=== PATIENT | male | born 1965 | race Caucasian/White ===

== ENCOUNTER → 2017-06-23 | Outpatient (CLI) | payer BC ==
--- NOTE | 2017-06-23 16:13 | Diagnostic Imaging Report ---
PROCEDURE: Frontal and lateral views of the chest. COMPARISON: None. INDICATIONS: Congestion, shortness of breath. RULE OUT PNEUMONIA FINDINGS: Lines/tubes: None. Lungs: The lungs are well inflated. Calcified granuloma in the right upper lung. There is no evidence of pneumonia or pulmonary edema. Pleura: There is no pleural effusion or pneumothorax. Heart and mediastinum: The heart and the mediastinum are normal. Bones: No acute bony abnormality. Mild degenerative changes of the thoracic spine. IMPRESSION: No acute cardiopulmonary disease. Dictated by: Alfredo Capone M.D. on 06/23/2017 at 16:12 Electronically approved by: Alfredo Capone M.D. on 06/23/2017 at 16:12
== END ==
LOC: RAD 15:48
PROVIDERS: ATTEND Internal Medicine
DX: R05 Cough (principal)
CPT/HCPCS: 71046